=== PATIENT | female | born 1985 | race African-American/Black ===

== ENCOUNTER 2016-08-22 18:08 | Emergency (ER) | payer MEDICAID ==
[~2016-08-22] VITALS: Ht 154.9 cm; Wt 54.1 kg
[2016-08-22 18:10] VITALS: BP 140/101
[2016-08-22] MEDS ORDERED: ONDANSETRON 2MG/ML, 2ML IVPush ONE (19:00)
[2016-08-22] MEDS ORDERED: SODIUM CHLORIDE FLUSH 10ML SYR IVF ONE (19:00)
[2016-08-22] MEDS ORDERED: ONDANSETRON 2MG/ML, 2ML ONE (19:25)
[2016-08-22] MEDS ORDERED: HYDROmorphone 1 MG/ML, 1ML ONE ×2 (19:25→20:25)
[2016-08-22] MEDS: HYDROmorphone 1 MG/ML, 1ML IVPush PRN ×2 (19:27→20:27)
[2016-08-22] MEDS ORDERED: LIDOCAINE 1%, 20ML ONE (20:31)
== END 2016-08-22 21:22 | disposition home or self-care (01) ==
LOC: ED 20:07
DX: N75.1 Abscess of Bartholin's gland (principal)
CPT/HCPCS: 56420; 96374; 96375; 96376; 99284; J1170; J2405

== ENCOUNTER 2016-08-24 10:08 | Emergency (ER) | payer MEDICAID ==
[~2016-08-24] VITALS: Ht 160 cm; Wt 56.0 kg
[2016-08-24 10:15] VITALS: BP 120/82
== END 2016-08-24 11:13 | disposition home or self-care (01) ==
LOC: ED 11:05
DX: N75.1 Abscess of Bartholin's gland (principal)
CPT/HCPCS: 99281

== ENCOUNTER 2016-09-12 00:21 | Emergency (ER) | payer MEDICAID ==
[~2016-09-12] VITALS: Ht 149.9 cm; Wt 55.6 kg
[2016-09-12 00:25] VITALS: BP 121/86
[2016-09-12] MEDS ORDERED: HYDROcodone/APAP 5/325 TABLET PO ONE (01:00)
[2016-09-12] MEDS ORDERED: IBUPROFEN 200 MG TABLET PO ONE (01:00)
[2016-09-12] MEDS ORDERED: HYDROcodone/APAP 5/325 TABLET ONE (01:25)
[2016-09-12] MEDS ORDERED: IBUPROFEN 200 MG TABLET ONE (01:26)
== END 2016-09-12 02:33 | disposition home or self-care (01) ==
LOC: ED 00:47
DX: S60.221A Contusion of right hand, initial encounter (principal); F17.210 Nicotine dependence, cigarettes, uncomplicated; W23.0XXA Caught, crushed, jammed, or pinched between moving objects, initial encounter; Y93.89 Activity, other specified; Y99.8 Other external cause status; Y92.59 Other trade areas as the place of occurrence of the external cause
CPT/HCPCS: 99283; 99284

== ENCOUNTER 2016-10-14 15:49 | Emergency (ER) | payer MEDICAID ==
[~2016-10-14] VITALS: Ht 154.9 cm; Wt 52.5 kg
[2016-10-14 16:03] VITALS: BP 111/83
[2016-10-14] MEDS ORDERED: LIDOCAINE 1%, 10ML INFIL ONE (16:30)
== END 2016-10-14 17:32 | disposition home or self-care (01) ==
LOC: ED 17:00
DX: S60.372A Other superficial bite of left thumb, initial encounter (principal); Y04.1XXA Assault by human bite, initial encounter; Y93.89 Activity, other specified; Y92.89 Other specified places as the place of occurrence of the external cause; Y99.9 Unspecified external cause status
CPT/HCPCS: 99283

== ENCOUNTER 2016-12-23 00:26 | Emergency (ER) | payer MEDICAID ==
[~2016-12-23] VITALS: Ht 152.4 cm; Wt 54.5 kg
[2016-12-23] MEDS ORDERED: LIDOCAINE 1%, 10ML INFIL ONE (01:30)
[2016-12-23] MEDS ORDERED: BENZOCAINE 20% SPRAY 0.5ML TP ONE (01:30)
[2016-12-23] MEDS ORDERED: BENZOCAINE 20% SPRAY 0.5ML ONE (01:35)
[2016-12-23] MEDS ORDERED: LIDOCAINE 1%, 20ML ONE (01:35)
[2016-12-23 02:33] VITALS: BP 123/81
== END 2016-12-23 02:47 | disposition home or self-care (01) ==
LOC: ED 01:35
DX: N75.1 Abscess of Bartholin's gland (principal); F17.200 Nicotine dependence, unspecified, uncomplicated
CPT/HCPCS: 56420; 99284; J3490

== ENCOUNTER 2017-03-07 18:53 | Emergency (ER) | payer MEDICAID ==
[~2017-03-07] VITALS: Ht 147.3 cm; Wt 61.4 kg
[2017-03-07 18:54] VITALS: BP 142/107
== END 2017-03-07 20:30 | disposition home or self-care (01) ==
LOC: ED 20:00
DX: S93.492A Sprain of other ligament of left ankle, initial encounter (principal); W01.0XXA Fall on same level from slipping, tripping and stumbling without subsequent striking against object, initial encounter; Y93.89 Activity, other specified; Y92.59 Other trade areas as the place of occurrence of the external cause; Y99.9 Unspecified external cause status
CPT/HCPCS: 99284

== ENCOUNTER 2017-04-03 06:49 | Emergency (ER) | payer MEDICAID ==
[~2017-04-03] VITALS: Ht 154.9 cm; Wt 58.0 kg
[2017-04-03 06:51] VITALS: BP 124/87
== END 2017-04-03 07:44 | disposition home or self-care (01) ==
LOC: ED 07:07
DX: S93.492A Sprain of other ligament of left ankle, initial encounter (principal); F17.210 Nicotine dependence, cigarettes, uncomplicated; X58.XXXA Exposure to other specified factors, initial encounter; Y93.01 Activity, walking, marching and hiking; Y99.8 Other external cause status; Y92.89 Other specified places as the place of occurrence of the external cause
CPT/HCPCS: 99283

== ENCOUNTER 2017-04-10 15:42 | Emergency (ER) | payer MEDICAID ==
[~2017-04-10] VITALS: Ht 154.9 cm; Wt 56.7 kg
[2017-04-10 15:46] VITALS: BP 144/95
[2017-04-10] MEDS ORDERED: DIPH,PERTUSS(ACELL),TET VAC/PF 0.5 ML IM-VACC ONE (16:59)
[2017-04-10] MEDS ORDERED: DIPH,PERTUSS(ACELL),TET VAC/PF NC IM-VACC ONE (17:00)
== END 2017-04-10 17:10 | disposition home or self-care (01) ==
LOC: ED 16:08
DX: S91.331A Puncture wound without foreign body, right foot, initial encounter (principal); L03.115 Cellulitis of right lower limb; X58.XXXA Exposure to other specified factors, initial encounter; Y93.89 Activity, other specified; Y92.009 Unspecified place in unspecified non-institutional (private) residence as the place of occurrence of the external cause; Y99.8 Other external cause status
CPT/HCPCS: 90471; 90715